=== PATIENT | male | born 1960 | race Caucasian/White ===

== ENCOUNTER 2018-10-30 04:54 | Inpatient (IN) | payer OTHER ==
[2018-10-30] MEDS ORDERED: NITROGLYCERIN (SL) 0.4 MG TAB SL (06:00)
[2018-10-30] MEDS ORDERED: ACETAMINOPHEN 325 MG TAB PO (06:00)
[2018-10-30] MEDS ORDERED: MAGNESIUM HYDROXIDE 30ML CUP PO (06:00)
[2018-10-30] MEDS ORDERED: morphine 2 MG INJ IV (06:00)
[2018-10-30] MEDS ORDERED: DOCUSATE SODIUM 100 MG CAP PO (06:00)
[2018-10-30] MEDS ORDERED: LORAZEPAM 2 MG INJ IV (06:00)
[2018-10-30] MEDS ORDERED: ONDANSETRON 4 MG INJ IV (06:00)
[2018-10-30] MEDS ORDERED: ALBUTEROL/IPRATROPIUM (NEB) 3 ML AMP HHN (06:00)
[2018-10-30] MEDS ORDERED: NACL 0.9% 3 ML SYG IV (06:00)
[2018-10-30] MEDS: HYDROCODONE/APAP (5/325) TAB PO ×2 (08:12→19:50)
[2018-10-30] MEDS: SOD CHLORIDE 0.45% 1,000 ML IV (08:12)
[2018-10-30] MEDS: hydrALAzine 20 MG INJ IV (08:13)
[2018-10-30 08:16] LABS: INR 0.91; PROTIME 12.4 Sec (11.9-14.9)
[2018-10-30 08:17] LABS: PARTIAL THROMBOPLASTIN TIME 31.2 Sec (23.0-35.0)
[2018-10-30 08:18] LABS: ANION GAP 8 (5-13); BLOOD UREA NITROGEN 45 mg/dl (7-20); CALCIUM 8.9 mg/dl (8.4-10.2); CARBON DIOXIDE 20 mmol/L (21-31); CHLORIDE 113 mmol/L (97-110); CREATININE 2.06 mg/dl (0.61-1.24); Estimated GFR 34 mL/min (>60); GLUCOSE 91 mg/dl (70-220); POTASSIUM 5.3 mmol/L (3.5-5.1); SODIUM 141 mmol/L (135-144)
[2018-10-30 08:31] LABS: FREE T4 (FREE THYROXINE) 0.84 ng/dl (0.64-1.79)
[2018-10-30] MEDS: HEPARIN 5,000 UNIT/1 ML VIAL SC ×2 (08:32→21:35)
[2018-10-30] MEDS: ISOSORBIDE MONONITRATE(SR)60 MG TAB PO ×2 (10:30→11:39)
[2018-10-30] MEDS ORDERED: NIFEdipine 10 MG CAP PO (11:30)
[2018-10-30] MEDS: AMLODIPINE 10 MG TAB PO (11:39)
[2018-10-30 12:31] LABS: PHOSPHORUS 5.5 mg/dl (2.5-4.9)
[2018-10-30 12:39] LABS: ADD UMIC YES; UR ASCORBIC ACID NEGATIVE (NEGATIVE); UR BACTERIA FEW /HPF (NONE SEEN); UR BILIRUBIN (Dip) NEGATIVE (NEGATIVE); UR BLOOD (Dip) 2+ mg/dL (NEGATIVE); UR CLARITY CLEAR (CLEAR); UR COLOR STRAW (YELLOW); UR GLUCOSE (Dip) NEGATIVE (NEGATIVE); UR KETONES (Dip) NEGATIVE (NEGATIVE); UR LEUKOCYTE ESTERASE (Dip) NEGATIVE Leu/ul (NEGATIVE); UR NITRITE (Dip) NEGATIVE (NEGATIVE); UR RBC 16 /HPF (0-5); UR SPECIFIC GRAVITY (Dip) 1.011 (1.003-1.030); UR TOTAL PROTEIN (Dip) 2+ mg/dl (NEGATIVE); UR UROBILINOGEN (Dip) NEGATIVE (NEGATIVE); UR WBC 1 /HPF (0-5)
[2018-10-30 12:43] LABS: CREATININE,URINE RANDOM 43.72 mg/dl (20-370)
[2018-10-30 12:51] LABS: PROTEIN/CREAT RATIO 6.65 RATIO
[2018-10-30] MEDS: CLOTRIMAZOLE 1% 30 GM CR TOP (14:10)
[2018-10-30 15:33] LABS: PARATHYROID HORMONE INTACT 42.6 pg/ml (7.5-53.5)
[2018-10-30] MEDS: NA BICARBONATE 650 MG TAB PO (21:20)
[2018-10-31] MEDS: LEVOTHYROXINE 50 MCG TAB PO (05:56)
[2018-10-31 06:21] LABS: ADD MAN DIFF? NO
[2018-10-31 06:25] LABS: BASOPHIL # 0.1 10^3/ul (0.0-0.1); BASOPHILS % 1.1 % (0.0-2.0); EOSINOPHILS # 0.3 10^3/ul (0.0-0.5); EOSINOPHILS % 6.7 % (0.0-7.0); HEMATOCRIT 32.9 % (42.0-52.0); HEMOGLOBIN 11.1 g/dl (14.0-18.0); LYMPHOCYTES # 1.3 10^3/ul (0.8-2.9); LYMPHOCYTES % 28.6 % (15.0-51.0); MEAN CORPUSCULAR HEMOGLOBIN 30.8 pg (29.0-33.0); MEAN CORPUSCULAR HGB CONC 33.7 g/dl (32.0-37.0); MEAN CORPUSCULAR VOLUME 91.4 fl (82.0-101.0); MEAN PLATELET VOLUME 8.7 fl (7.4-10.4); MONOCYTE # 0.5 10^3/ul (0.3-0.9); MONOCYTES % 10.6 % (0.0-11.0); NEUTROPHIL # 2.4 10^3/ul (1.6-7.5); NEUTROPHILS % 52.6 % (39.0-77.0); PLATELET COUNT 156 10^3/UL (140-415); RED CELL DISTRIBUTION WIDTH 13.7 % (11.5-14.5)
[2018-10-31 06:25] LABS: WHITE BLOOD COUNT 4.5 10^3/ul (4.8-10.8)
[2018-10-31 06:47] LABS: SODIUM 141 mmol/L (135-144)
[2018-10-31 06:49] LABS: ALANINE AMINOTRANSFERASE 22 IU/L (13-69); ALBUMIN 3.4 g/dl (3.3-4.9); ALBUMIN/GLOBULIN RATIO 1.06; ALKALINE PHOSPHATASE 90 IU/L (42-121); ANION GAP 9 (5-13); ASPARTATE AMINO TRANSFERASE 19 IU/L (15-46); BILIRUBIN,INDIRECT 0.4 mg/dl (0-1.1); BILIRUBIN,TOTAL 0.4 mg/dl (0.2-1.3); BLOOD UREA NITROGEN 53 mg/dl (7-20); CALCIUM 8.6 mg/dl (8.4-10.2); CARBON DIOXIDE 19 mmol/L (21-31); CHLORIDE 113 mmol/L (97-110); CREATININE 2.25 mg/dl (0.61-1.24); Estimated GFR 30 mL/min (>60); GLUCOSE 92 mg/dl (70-220); TOTAL PROTEIN 6.6 g/dl (6.1-8.1)
[2018-10-31 06:52] LABS: IRON 101 ug/dl (35-150)
[2018-10-31 06:58] LABS: CHOL/HDL RATIO 4.6 RATIO; CHOLESTEROL 227 mg/dl (100-200); HDL CHOLESTEROL 49 mg/dl (28-71); LDL CHOLESTEROL,CALCULATED 155 mg/dl; MAGNESIUM 2.3 mg/dl (1.7-2.5); TRIGLYCERIDES 115 mg/dl (0-149)
[2018-10-31 06:58] LABS: PHOSPHORUS 5.7 mg/dl (2.5-4.9)
[2018-10-31 07:01] LABS: % IRON SATURATION 37 % SAT (22-52); TOTAL IRON BINDING CAPACITY 274 ug/dl (241-421)
[2018-10-31 07:29] LABS: FERRITIN 56.7 ng/ml (11.1-264.0)
[2018-10-31] MEDS: FUROSEMIDE 40 MG TAB PO (08:27)
[2018-10-31] MEDS: NA BICARBONATE 650 MG TAB PO (08:27)
[2018-10-31] MEDS: CLOTRIMAZOLE 1% 30 GM CR TOP (08:28)
[2018-10-31] MEDS: AMLODIPINE 10 MG TAB PO (08:28)
[2018-10-31] MEDS: ISOSORBIDE MONONITRATE(SR)60 MG TAB PO (08:28)
[2018-10-31] MEDS: HEPARIN 5,000 UNIT/1 ML VIAL SC (08:29)
[2018-10-31] MEDS: HYDROCODONE/APAP (5/325) TAB PO (08:47)
[2018-10-31 13:19] LABS: COMPLEMENT C3 103 mg/dl (88-165); COMPLEMENT C4 16 mg/dl (14-44)
[2018-11-01 05:31] LABS: PROTEIN, TOTAL 6.8 g/dL (6.1-8.1)
[2018-11-01 14:12] LABS: ANCA SCREEN NEGATIVE (NEGATIVE)
[2018-11-01 18:51] LABS: ANA SCREEN POSITIVE (NEGATIVE)
[2018-11-01 19:36] LABS: MYELOPEROXIDASE ANTIBODY <1.0 AI; PROTEINASE-3 ANTIBODY <1.0 AI
[2018-11-01 21:13] LABS: ANA PATTERN SPECKLED; ANA TITER 1:40 titer
[2018-11-01 23:32] LABS: ALBUMIN 3.7 g/dL (3.8-4.8); ALPHA-1-GLOBULINS 0.3 g/dL (0.2-0.3); ALPHA-2-GLOBULINS 0.8 g/dL (0.5-0.9); BETA 2 GLOBULINS 0.3 g/dL (0.2-0.5); BETA GLOBULINS 0.5 g/dL (0.4-0.6); GAMMA GLOBULINS 1.2 g/dL (0.8-1.7)
[2018-11-02 07:12] LABS: ALDOSTERONE 6 ng/dL
== END 2018-10-31 14:46 | disposition home or self-care (01) | DRG 305 ==
LOC: TEL 04:54
PROVIDERS: Hospitalist
DX: I16.1 Hypertensive emergency (principal); E87.2 Acidosis; E87.5 Hyperkalemia; I12.9 Hypertensive chronic kidney disease with stage 1 through stage 4 chronic kidney disease, or unspecified chronic kidney disease; N18.3 Chronic kidney disease, stage 3 (moderate); I27.20 Pulmonary hypertension, unspecified; E03.9 Hypothyroidism, unspecified; D64.9 Anemia, unspecified; I25.2 Old myocardial infarction; M54.2 Cervicalgia; E78.5 Hyperlipidemia, unspecified
CPT/HCPCS: 80048; 80053; 80061; 81001; 81003; 82088; 82570; 82728; 83036; 83540; 83735; 83970; 84100; 84155; 84165; 84244; 84439; 84443; 85025; 85610; 85730; 86021; 86038; 86160; 87081; 92610; 93306; 93976; 97161

== ENCOUNTER 2019-01-20 09:34 | Emergency (ER) | payer OTHER ==
[2019-01-20] MEDS: ONDANSETRON 4 MG INJ IV (10:30)
[2019-01-20] MEDS: morphine 4 MG/ML VIAL IV (10:30)
[2019-01-20] MEDS: SOD CHLORIDE 0.9% 1,000 ML IV (10:31)
[2019-01-20 10:36] LABS: ADD MAN DIFF? NO
[2019-01-20 10:40] LABS: WHITE BLOOD COUNT 6.5 10^3/ul (4.8-10.8)
[2019-01-20 10:40] LABS: BASOPHIL # 0.1 10^3/ul (0.0-0.1); BASOPHILS % 1.2 % (0.0-2.0); EOSINOPHILS # 0.3 10^3/ul (0.0-0.5); EOSINOPHILS % 4.3 % (0.0-7.0); HEMATOCRIT 34.8 % (42.0-52.0); LYMPHOCYTES # 1.3 10^3/ul (0.8-2.9); LYMPHOCYTES % 20.3 % (15.0-51.0); MEAN CORPUSCULAR HEMOGLOBIN 31.1 pg (29.0-33.0); MEAN CORPUSCULAR HGB CONC 34.5 g/dl (32.0-37.0); MEAN CORPUSCULAR VOLUME 90.2 fl (82.0-101.0); MEAN PLATELET VOLUME 9.4 fl (7.4-10.4); MONOCYTE # 0.5 10^3/ul (0.3-0.9); MONOCYTES % 7.9 % (0.0-11.0); NEUTROPHIL # 4.3 10^3/ul (1.6-7.5); PLATELET COUNT 179 10^3/UL (140-415); RED BLOOD COUNT 3.86 10^6/ul (4.70-6.10); RED CELL DISTRIBUTION WIDTH 12.3 % (11.5-14.5)
[2019-01-20 10:56] LABS: ALANINE AMINOTRANSFERASE 14 IU/L (13-69); ALBUMIN 3.9 g/dl (3.3-4.9); ALBUMIN/GLOBULIN RATIO 1.18; ALKALINE PHOSPHATASE 77 IU/L (42-121); ANION GAP 8 (5-13); ASPARTATE AMINO TRANSFERASE 21 IU/L (15-46); BILIRUBIN,INDIRECT 0.4 mg/dl (0-1.1); BILIRUBIN,TOTAL 0.4 mg/dl (0.2-1.3); BLOOD UREA NITROGEN 46 mg/dl (7-20); CALCIUM 9.5 mg/dl (8.4-10.2); CARBON DIOXIDE 22 mmol/L (21-31); CHLORIDE 109 mmol/L (97-110); CREATININE 2.32 mg/dl (0.61-1.24); Estimated GFR 29 mL/min (>60); GLUCOSE 101 mg/dl (70-220); LIPASE 110 U/L (23-300); POTASSIUM 4.6 mmol/L (3.5-5.1); SODIUM 139 mmol/L (135-144); TOTAL PROTEIN 7.2 g/dl (6.1-8.1)
[2019-01-20 11:07] LABS: TROPONIN-I < 0.012 ng/ml (0.000-0.120)
[2019-01-20 11:54] LABS: ADD UMIC YES; UR ASCORBIC ACID NEGATIVE (NEGATIVE); UR BILIRUBIN (Dip) NEGATIVE (NEGATIVE); UR BLOOD (Dip) 1+ mg/dL (NEGATIVE); UR CLARITY CLEAR (CLEAR); UR COLOR YELLOW (YELLOW); UR GLUCOSE (Dip) NEGATIVE (NEGATIVE); UR KETONES (Dip) NEGATIVE (NEGATIVE); UR LEUKOCYTE ESTERASE (Dip) NEGATIVE Leu/ul (NEGATIVE); UR NITRITE (Dip) NEGATIVE (NEGATIVE); UR RBC 12 /HPF (0-5); UR TOTAL PROTEIN (Dip) 3+ mg/dl (NEGATIVE); UR UROBILINOGEN (Dip) NEGATIVE (NEGATIVE); UR WBC 2 /HPF (0-5)
== END 2019-01-20 12:46 | disposition home or self-care (01) ==
LOC: FTE 09:34
DX: I12.9 Hypertensive chronic kidney disease with stage 1 through stage 4 chronic kidney disease, or unspecified chronic kidney disease (principal); R80.9 Proteinuria, unspecified; I11.0 Hypertensive heart disease with heart failure; I50.9 Heart failure, unspecified; N18.9 Chronic kidney disease, unspecified; I25.2 Old myocardial infarction; Z18.89 Other specified retained foreign body fragments; Z86.73 Personal history of transient ischemic attack (TIA), and cerebral infarction without residual deficits
CPT/HCPCS: 36415; 71045; 74176; 80053; 81001; 83690; 84484; 85025; 96361; 96374; 96375; 99285-25

== ENCOUNTER 2019-01-23 19:05 | Inpatient (IN) | payer OTHER ==
[2019-01-23] MEDS ORDERED: ONDANSETRON 4 MG INJ IV (19:30)
[2019-01-23] MEDS ORDERED: ACETAMINOPHEN 325 MG TAB PO (19:30)
[2019-01-23] MEDS: LABETALOL HCL 20MG INJ IV (19:42)
[2019-01-23 19:56] LABS: ADD MAN DIFF? NO
[2019-01-23 20:20] LABS: BASOPHIL # 0.1 10^3/ul (0.0-0.1); EOSINOPHILS # 0.3 10^3/ul (0.0-0.5); EOSINOPHILS % 5.4 % (0.0-7.0); HEMATOCRIT 37.1 % (42.0-52.0); HEMOGLOBIN 12.6 g/dl (14.0-18.0); LYMPHOCYTES # 1.2 10^3/ul (0.8-2.9); MEAN CORPUSCULAR HEMOGLOBIN 30.9 pg (29.0-33.0); MEAN CORPUSCULAR VOLUME 90.9 fl (82.0-101.0); MEAN PLATELET VOLUME 9.4 fl (7.4-10.4); MONOCYTE # 0.6 10^3/ul (0.3-0.9); MONOCYTES % 9.4 % (0.0-11.0); NEUTROPHIL # 3.8 10^3/ul (1.6-7.5); NEUTROPHILS % 63.2 % (39.0-77.0); PLATELET COUNT 190 10^3/UL (140-415); RED BLOOD COUNT 4.08 10^6/ul (4.70-6.10); RED CELL DISTRIBUTION WIDTH 12.4 % (11.5-14.5)
[2019-01-23 20:42] LABS: ALANINE AMINOTRANSFERASE 21 IU/L (13-69); ALBUMIN 3.9 g/dl (3.3-4.9); ALBUMIN/GLOBULIN RATIO 1.14; ALKALINE PHOSPHATASE 88 IU/L (42-121); ANION GAP 8 (5-13); ASPARTATE AMINO TRANSFERASE 24 IU/L (15-46); BILIRUBIN,INDIRECT 0.4 mg/dl (0-1.1); BILIRUBIN,TOTAL 0.4 mg/dl (0.2-1.3); BLOOD UREA NITROGEN 42 mg/dl (7-20); CALCIUM 9.1 mg/dl (8.4-10.2); CARBON DIOXIDE 21 mmol/L (21-31); CHLORIDE 111 mmol/L (97-110); CREATININE 2.19 mg/dl (0.61-1.24); Estimated GFR 31 mL/min (>60); GLUCOSE 99 mg/dl (70-220); POTASSIUM 4.3 mmol/L (3.5-5.1); SODIUM 140 mmol/L (135-144); TOTAL PROTEIN 7.3 g/dl (6.1-8.1)
[2019-01-23 20:52] LABS: TROPONIN-I < 0.012 ng/ml (0.000-0.120)
[2019-01-23] MEDS: HYDROCODONE/APAP (5/325) TAB PO (22:13)
[2019-01-24] MEDS ORDERED: ALBUTEROL/IPRATROPIUM (NEB) 3 ML AMP HHN (02:30)
[2019-01-24] MEDS ORDERED: NACL 0.9% 3 ML SYG IV (02:30)
[2019-01-24] MEDS ORDERED: ONDANSETRON 4 MG INJ IV (02:30)
[2019-01-24] MEDS ORDERED: ACETAMINOPHEN 325 MG TAB PO (02:30)
[2019-01-24] MEDS ORDERED: NITROGLYCERIN (SL) 0.4 MG TAB SL (02:30)
[2019-01-24] MEDS: LOSARTAN 50 MG TAB PO ×2 (02:53→09:31)
[2019-01-24] MEDS: HYDROCODONE/APAP (5/325) TAB PO ×3 (03:08→18:55)
[2019-01-24 05:59] LABS: ADD MAN DIFF? NO
[2019-01-24 06:06] LABS: BASOPHIL # 0.1 10^3/ul (0.0-0.1); BASOPHILS % 1.2 % (0.0-2.0); EOSINOPHILS # 0.3 10^3/ul (0.0-0.5); EOSINOPHILS % 5.5 % (0.0-7.0); HEMATOCRIT 34.6 % (42.0-52.0); HEMOGLOBIN 11.6 g/dl (14.0-18.0); LYMPHOCYTES # 1.2 10^3/ul (0.8-2.9); LYMPHOCYTES % 19.8 % (15.0-51.0); MEAN CORPUSCULAR HEMOGLOBIN 30.4 pg (29.0-33.0); MEAN CORPUSCULAR HGB CONC 33.5 g/dl (32.0-37.0); MEAN CORPUSCULAR VOLUME 90.6 fl (82.0-101.0); MONOCYTE # 0.6 10^3/ul (0.3-0.9); MONOCYTES % 10.4 % (0.0-11.0); NEUTROPHIL # 3.7 10^3/ul (1.6-7.5); NEUTROPHILS % 62.4 % (39.0-77.0); PLATELET COUNT 170 10^3/UL (140-415); RED BLOOD COUNT 3.82 10^6/ul (4.70-6.10); RED CELL DISTRIBUTION WIDTH 12.6 % (11.5-14.5)
[2019-01-24 06:24] LABS: CREATINE KINASE 78 IU/L (23-200)
[2019-01-24 06:35] LABS: LIPASE 79 U/L (23-300)
[2019-01-24 06:36] LABS: CK INDEX 1.3; CK-MB 1.02 ng/ml (0.0-2.4); TROPONIN-I 0.021 ng/ml (0.000-0.120)
[2019-01-24 06:38] LABS: ALANINE AMINOTRANSFERASE 18 IU/L (13-69); ALBUMIN/GLOBULIN RATIO 0.96; ALKALINE PHOSPHATASE 73 IU/L (42-121); ANION GAP 3 (5-13); ASPARTATE AMINO TRANSFERASE 21 IU/L (15-46); BILIRUBIN,INDIRECT 0.5 mg/dl (0-1.1); BILIRUBIN,TOTAL 0.5 mg/dl (0.2-1.3); BLOOD UREA NITROGEN 38 mg/dl (7-20); CALCIUM 8.6 mg/dl (8.4-10.2); CARBON DIOXIDE 24 mmol/L (21-31); CHLORIDE 112 mmol/L (97-110); CREATININE 2.02 mg/dl (0.61-1.24); Estimated GFR 34 mL/min (>60); GLUCOSE 93 mg/dl (70-220); POTASSIUM 4.3 mmol/L (3.5-5.1); SODIUM 139 mmol/L (135-144); TOTAL PROTEIN 6.1 g/dl (6.1-8.1)
[2019-01-24] MEDS: PANTOPRAZOLE (EC) 40 MG TAB PO (06:39)
[2019-01-24] MEDS: LEVOTHYROXINE 50 MCG TAB PO (06:39)
[2019-01-24] MEDS: ASPIRIN (EC) 81 MG TAB PO (09:25)
[2019-01-24] MEDS: BETAMETHASONE/CLOTRIMAZOLE 15 GM CR TOP ×2 (09:25→20:39)
[2019-01-24] MEDS: ISOSORBIDE MONONITRATE(SR)60 MG TAB PO (09:31)
[2019-01-24] MEDS: AMLODIPINE 10 MG TAB PO (09:32)
[2019-01-24] MEDS: FUROSEMIDE 40 MG TAB PO (09:32)
[2019-01-24] MEDS: HEPARIN 5,000 UNIT/1 ML VIAL SC ×2 (10:18→20:46)
[2019-01-24 11:38] LABS: CREATINE KINASE 80 IU/L (23-200)
[2019-01-24 11:47] LABS: CK INDEX 1.1; CK-MB 0.85 ng/ml (0.0-2.4); TROPONIN-I < 0.012 ng/ml (0.000-0.120)
[2019-01-24 19:42] LABS: ADD UMIC YES; UR ASCORBIC ACID NEGATIVE (NEGATIVE); UR BILIRUBIN (Dip) NEGATIVE (NEGATIVE); UR BLOOD (Dip) 2+ mg/dL (NEGATIVE); UR CLARITY CLEAR (CLEAR); UR COLOR YELLOW (YELLOW); UR GLUCOSE (Dip) NEGATIVE (NEGATIVE); UR KETONES (Dip) NEGATIVE (NEGATIVE); UR LEUKOCYTE ESTERASE (Dip) NEGATIVE Leu/ul (NEGATIVE); UR NITRITE (Dip) NEGATIVE (NEGATIVE); UR RBC 7 /HPF (0-5); UR TOTAL PROTEIN (Dip) 2+ mg/dl (NEGATIVE); UR UROBILINOGEN (Dip) NEGATIVE (NEGATIVE); UR WBC 2 /HPF (0-5)
[2019-01-24] MEDS: ATORVASTATIN 40 MG TAB PO (20:39)
[2019-01-25 02:44] LABS: ADD UMIC YES; UR ASCORBIC ACID NEGATIVE (NEGATIVE); UR BACTERIA FEW /HPF (NONE SEEN); UR BILIRUBIN (Dip) NEGATIVE (NEGATIVE); UR BLOOD (Dip) 1+ mg/dL (NEGATIVE); UR CLARITY CLEAR (CLEAR); UR COLOR YELLOW (YELLOW); UR GLUCOSE (Dip) NEGATIVE (NEGATIVE); UR KETONES (Dip) NEGATIVE (NEGATIVE); UR LEUKOCYTE ESTERASE (Dip) NEGATIVE Leu/ul (NEGATIVE); UR NITRITE (Dip) NEGATIVE (NEGATIVE); UR RBC 7 /HPF (0-5); UR SPECIFIC GRAVITY (Dip) 1.012 (1.003-1.030); UR TOTAL PROTEIN (Dip) 2+ mg/dl (NEGATIVE); UR UROBILINOGEN (Dip) NEGATIVE (NEGATIVE); UR WBC 1 /HPF (0-5)
[2019-01-25 02:51] LABS: CREATININE,URINE RANDOM 75.65 mg/dl (20-370)
[2019-01-25 02:51] LABS: SODIUM,URINE RANDOM 75 mmol/L (30-90)
[2019-01-25 06:14] LABS: ADD MAN DIFF? NO
[2019-01-25 06:22] LABS: WHITE BLOOD COUNT 4.8 10^3/ul (4.8-10.8)
[2019-01-25 06:22] LABS: BASOPHIL # 0.1 10^3/ul (0.0-0.1); EOSINOPHILS # 0.4 10^3/ul (0.0-0.5); EOSINOPHILS % 8.1 % (0.0-7.0); HEMATOCRIT 32.7 % (42.0-52.0); HEMOGLOBIN 11.2 g/dl (14.0-18.0); LYMPHOCYTES # 1.2 10^3/ul (0.8-2.9); LYMPHOCYTES % 24.6 % (15.0-51.0); MEAN CORPUSCULAR HEMOGLOBIN 31.5 pg (29.0-33.0); MEAN CORPUSCULAR HGB CONC 34.3 g/dl (32.0-37.0); MEAN CORPUSCULAR VOLUME 91.9 fl (82.0-101.0); MEAN PLATELET VOLUME 9.3 fl (7.4-10.4); MONOCYTE # 0.5 10^3/ul (0.3-0.9); MONOCYTES % 10.5 % (0.0-11.0); NEUTROPHIL # 2.7 10^3/ul (1.6-7.5); NEUTROPHILS % 55.6 % (39.0-77.0); PLATELET COUNT 184 10^3/UL (140-415); RED BLOOD COUNT 3.56 10^6/ul (4.70-6.10); RED CELL DISTRIBUTION WIDTH 12.3 % (11.5-14.5)
[2019-01-25 06:40] LABS: ANION GAP 5 (5-13); BLOOD UREA NITROGEN 42 mg/dl (7-20); CALCIUM 8.5 mg/dl (8.4-10.2); CARBON DIOXIDE 24 mmol/L (21-31); CHLORIDE 110 mmol/L (97-110); CREATININE 2.24 mg/dl (0.61-1.24); Estimated GFR 30 mL/min (>60); GLUCOSE 104 mg/dl (70-220); MAGNESIUM 2.2 mg/dl (1.7-2.5); PHOSPHORUS 4.3 mg/dl (2.5-4.9); POTASSIUM 4.1 mmol/L (3.5-5.1); SODIUM 139 mmol/L (135-144)
[2019-01-25] MEDS: PANTOPRAZOLE (EC) 40 MG TAB PO (06:49)
[2019-01-25] MEDS: AMLODIPINE 10 MG TAB PO (09:02)
[2019-01-25] MEDS: ASPIRIN (EC) 81 MG TAB PO (09:02)
[2019-01-25] MEDS: FUROSEMIDE 40 MG TAB PO (09:02)
[2019-01-25] MEDS: LEVOTHYROXINE 50 MCG TAB PO (09:03)
[2019-01-25] MEDS: ISOSORBIDE MONONITRATE(SR)60 MG TAB PO (09:03)
[2019-01-25] MEDS: LOSARTAN 50 MG TAB PO (09:04)
[2019-01-25] MEDS: BETAMETHASONE/CLOTRIMAZOLE 15 GM CR TOP ×2 (09:04→20:16)
[2019-01-25] MEDS: HEPARIN 5,000 UNIT/1 ML VIAL SC ×2 (09:10→20:12)
[2019-01-25] MEDS: HYDROCODONE/APAP (5/325) TAB PO ×2 (09:15→20:15)
[2019-01-25 16:06] LABS: CREATININE, RANDOM URINE 68 mg/dL (20-320); MICROALBUMIN/CREATININE RATIO 912 (<30)
[2019-01-25] MEDS: NIFEdipine (XL) 60 MG TAB PO (16:58)
[2019-01-25] MEDS: ATORVASTATIN 40 MG TAB PO (20:12)
[2019-01-26] MEDS: traMADol 50 MG TAB PO (00:54)
[2019-01-26] MEDS: HYDROCODONE/APAP (5/325) TAB PO ×3 (01:30→20:51)
[2019-01-26] MEDS: LEVOTHYROXINE 50 MCG TAB PO ×2 (06:30→09:01)
[2019-01-26] MEDS: PANTOPRAZOLE (EC) 40 MG TAB PO ×2 (06:30→09:01)
[2019-01-26 06:57] LABS: ANION GAP 7 (5-13); BLOOD UREA NITROGEN 49 mg/dl (7-20); CALCIUM 8.8 mg/dl (8.4-10.2); CARBON DIOXIDE 23 mmol/L (21-31); CHLORIDE 107 mmol/L (97-110); CREATININE 2.58 mg/dl (0.61-1.24); Estimated GFR 26 mL/min (>60); GLUCOSE 96 mg/dl (70-220); POTASSIUM 4.6 mmol/L (3.5-5.1); SODIUM 137 mmol/L (135-144)
[2019-01-26] MEDS: ASPIRIN (EC) 81 MG TAB PO (09:00)
[2019-01-26] MEDS: NIFEdipine (XL) 60 MG TAB PO (09:01)
[2019-01-26] MEDS: ISOSORBIDE MONONITRATE(SR)60 MG TAB PO (09:01)
[2019-01-26] MEDS: HEPARIN 5,000 UNIT/1 ML VIAL SC ×2 (09:06→20:56)
[2019-01-26] MEDS: BETAMETHASONE/CLOTRIMAZOLE 15 GM CR TOP ×2 (09:06→20:47)
[2019-01-26] MEDS ORDERED: CEPHALEXIN 500 MG CAP PO (13:30)
[2019-01-26] MEDS: CEPHALEXIN 500 MG CAP PO (20:46)
[2019-01-26] MEDS: ATORVASTATIN 40 MG TAB PO (20:46)
[2019-01-27 07:17] LABS: ANION GAP 6 (5-13); BLOOD UREA NITROGEN 61 mg/dl (7-20); CALCIUM 8.5 mg/dl (8.4-10.2); CARBON DIOXIDE 22 mmol/L (21-31); CHLORIDE 108 mmol/L (97-110); CREATININE 2.93 mg/dl (0.61-1.24); Estimated GFR 22 mL/min (>60); GLUCOSE 88 mg/dl (70-220); MAGNESIUM 2.3 mg/dl (1.7-2.5); PHOSPHORUS 5.3 mg/dl (2.5-4.9); POTASSIUM 4.4 mmol/L (3.5-5.1); SODIUM 136 mmol/L (135-144)
[2019-01-27] MEDS: BETAMETHASONE/CLOTRIMAZOLE 15 GM CR TOP ×2 (09:00→21:43)
[2019-01-27] MEDS: ISOSORBIDE MONONITRATE(SR)60 MG TAB PO (09:01)
[2019-01-27] MEDS: CEPHALEXIN 500 MG CAP PO ×2 (09:01→21:44)
[2019-01-27] MEDS: ASPIRIN (EC) 81 MG TAB PO (09:01)
[2019-01-27] MEDS: NIFEdipine (XL) 60 MG TAB PO (09:01)
[2019-01-27] MEDS: HEPARIN 5,000 UNIT/1 ML VIAL SC ×2 (09:08→21:54)
[2019-01-27] MEDS ORDERED: POLYETHYLENE GLYCOL 17 GM PACKET PO (15:00)
[2019-01-27] MEDS: HYDROCODONE/APAP (5/325) TAB PO (18:03)
[2019-01-27] MEDS ORDERED: HARD FAT/PHENYLEPHRINE SUPP PR (21:00)
[2019-01-27] MEDS: ATORVASTATIN 40 MG TAB PO (22:25)
[2019-01-28 06:11] LABS: ANION GAP 6 (5-13); BLOOD UREA NITROGEN 65 mg/dl (7-20); CALCIUM 8.7 mg/dl (8.4-10.2); CARBON DIOXIDE 23 mmol/L (21-31); CHLORIDE 107 mmol/L (97-110); CREATININE 2.67 mg/dl (0.61-1.24); Estimated GFR 25 mL/min (>60); GLUCOSE 104 mg/dl (70-220); MAGNESIUM 2.4 mg/dl (1.7-2.5); POTASSIUM 4.3 mmol/L (3.5-5.1); SODIUM 136 mmol/L (135-144)
[2019-01-28] MEDS: PANTOPRAZOLE (EC) 40 MG TAB PO (06:12)
[2019-01-28] MEDS: LEVOTHYROXINE 50 MCG TAB PO (06:12)
[2019-01-28] MEDS: CALCIUM POLYCARBOPHIL 625 MG TAB PO (08:29)
[2019-01-28] MEDS: ASPIRIN (EC) 81 MG TAB PO (08:30)
[2019-01-28] MEDS: ISOSORBIDE MONONITRATE(SR)60 MG TAB PO (08:31)
[2019-01-28] MEDS: CEPHALEXIN 500 MG CAP PO ×2 (08:31→20:20)
[2019-01-28] MEDS: NIFEdipine (XL) 60 MG TAB PO (08:32)
[2019-01-28] MEDS: BETAMETHASONE/CLOTRIMAZOLE 15 GM CR TOP ×2 (08:37→20:22)
[2019-01-28] MEDS: HEPARIN 5,000 UNIT/1 ML VIAL SC ×2 (08:46→21:00)
[2019-01-28] MEDS: HYDROCODONE/APAP (5/325) TAB PO ×2 (09:47→19:43)
[2019-01-28] MEDS: ATORVASTATIN 40 MG TAB PO (20:24)
[2019-01-29] MEDS: HYDROCODONE/APAP (5/325) TAB PO ×3 (04:36→21:16)
[2019-01-29] MEDS: LEVOTHYROXINE 50 MCG TAB PO (06:08)
[2019-01-29] MEDS: PANTOPRAZOLE (EC) 40 MG TAB PO (06:08)
[2019-01-29 06:35] LABS: ANION GAP 6 (5-13); BLOOD UREA NITROGEN 57 mg/dl (7-20); CALCIUM 8.8 mg/dl (8.4-10.2); CARBON DIOXIDE 21 mmol/L (21-31); CHLORIDE 109 mmol/L (97-110); CREATININE 2.54 mg/dl (0.61-1.24); Estimated GFR 26 mL/min (>60); GLUCOSE 109 mg/dl (70-220); MAGNESIUM 2.3 mg/dl (1.7-2.5); PHOSPHORUS 4.4 mg/dl (2.5-4.9); POTASSIUM 4.8 mmol/L (3.5-5.1); SODIUM 136 mmol/L (135-144)
[2019-01-29] MEDS: POLYETHYLENE GLYCOL 17 GM PACKET PO (08:13)
[2019-01-29] MEDS: CALCIUM POLYCARBOPHIL 625 MG TAB PO (08:14)
[2019-01-29] MEDS: CEPHALEXIN 500 MG CAP PO ×2 (08:14→21:14)
[2019-01-29] MEDS: ASPIRIN (EC) 81 MG TAB PO (08:14)
[2019-01-29] MEDS: NIFEdipine (XL) 60 MG TAB PO (08:16)
[2019-01-29] MEDS: ISOSORBIDE MONONITRATE(SR)60 MG TAB PO (08:17)
[2019-01-29] MEDS: HEPARIN 5,000 UNIT/1 ML VIAL SC ×2 (08:17→21:47)
[2019-01-29] MEDS: BETAMETHASONE/CLOTRIMAZOLE 15 GM CR TOP ×2 (08:18→21:15)
[2019-01-29] MEDS: ATORVASTATIN 40 MG TAB PO (21:14)
[2019-01-30] MEDS: HYDROCODONE/APAP (5/325) TAB PO ×2 (01:08→07:00)
[2019-01-30] MEDS: hydrALAzine 20 MG INJ IV (01:40)
[2019-01-30] MEDS ORDERED: hydrALAzine 20 MG INJ IV (03:00)
[2019-01-30 05:06] LABS: ADD MAN DIFF? NO
[2019-01-30 05:07] LABS: BASOPHIL # 0.1 10^3/ul (0.0-0.1); BASOPHILS % 1.5 % (0.0-2.0); EOSINOPHILS # 0.4 10^3/ul (0.0-0.5); EOSINOPHILS % 8.5 % (0.0-7.0); HEMATOCRIT 32.7 % (42.0-52.0); HEMOGLOBIN 11.1 g/dl (14.0-18.0); LYMPHOCYTES # 1.4 10^3/ul (0.8-2.9); LYMPHOCYTES % 26.6 % (15.0-51.0); MEAN CORPUSCULAR HEMOGLOBIN 31.4 pg (29.0-33.0); MEAN CORPUSCULAR HGB CONC 33.9 g/dl (32.0-37.0); MEAN CORPUSCULAR VOLUME 92.4 fl (82.0-101.0); MEAN PLATELET VOLUME 9.1 fl (7.4-10.4); MONOCYTE # 0.5 10^3/ul (0.3-0.9); MONOCYTES % 9.1 % (0.0-11.0); NEUTROPHIL # 2.7 10^3/ul (1.6-7.5); NEUTROPHILS % 52.9 % (39.0-77.0); PLATELET COUNT 182 10^3/UL (140-415); RED BLOOD COUNT 3.54 10^6/ul (4.70-6.10); RED CELL DISTRIBUTION WIDTH 12.4 % (11.5-14.5)
[2019-01-30 05:07] LABS: WHITE BLOOD COUNT 5.2 10^3/ul (4.8-10.8)
[2019-01-30 05:44] LABS: ANION GAP 5 (5-13); BLOOD UREA NITROGEN 57 mg/dl (7-20); CALCIUM 8.6 mg/dl (8.4-10.2); CARBON DIOXIDE 24 mmol/L (21-31); CHLORIDE 108 mmol/L (97-110); CREATININE 2.61 mg/dl (0.61-1.24); Estimated GFR 26 mL/min (>60); GLUCOSE 90 mg/dl (70-220); MAGNESIUM 2.5 mg/dl (1.7-2.5); PHOSPHORUS 4.3 mg/dl (2.5-4.9); POTASSIUM 5.1 mmol/L (3.5-5.1); SODIUM 137 mmol/L (135-144)
[2019-01-30] MEDS: LEVOTHYROXINE 50 MCG TAB PO (07:01)
[2019-01-30] MEDS: PANTOPRAZOLE (EC) 40 MG TAB PO (07:36)
[2019-01-30] MEDS: ASPIRIN (EC) 81 MG TAB PO (08:23)
[2019-01-30] MEDS: ISOSORBIDE MONONITRATE(SR)60 MG TAB PO (08:23)
[2019-01-30] MEDS: CEPHALEXIN 500 MG CAP PO (08:24)
[2019-01-30] MEDS: NIFEdipine (XL) 60 MG TAB PO (08:24)
[2019-01-30] MEDS: POLYETHYLENE GLYCOL 17 GM PACKET PO (08:25)
[2019-01-30] MEDS: CALCIUM POLYCARBOPHIL 625 MG TAB PO (08:25)
[2019-01-30] MEDS: HEPARIN 5,000 UNIT/1 ML VIAL SC (08:28)
[2019-01-30] MEDS: BETAMETHASONE/CLOTRIMAZOLE 15 GM CR TOP (08:34)
[2019-01-31] MEDS ORDERED: LEVOTHYROXINE 75 MCG TAB PO (07:00)
== END 2019-01-30 14:48 | disposition home or self-care (01) | DRG 305 ==
LOC: 6WM 19:15 → MS1 01-30 00:39 → E/R 19:05
DX: I16.0 Hypertensive urgency (principal); E87.2 Acidosis; N17.9 Acute kidney failure, unspecified; N39.0 Urinary tract infection, site not specified; I11.0 Hypertensive heart disease with heart failure; I50.9 Heart failure, unspecified; I27.20 Pulmonary hypertension, unspecified; N18.3 Chronic kidney disease, stage 3 (moderate); E03.9 Hypothyroidism, unspecified; I25.10 Atherosclerotic heart disease of native coronary artery without angina pectoris; E78.5 Hyperlipidemia, unspecified; G89.29 Other chronic pain; R10.9 Unspecified abdominal pain; D63.1 Anemia in chronic kidney disease; E83.89 Other disorders of mineral metabolism; T14.8XXS Other injury of unspecified body region, sequela; W34.00XS Accidental discharge from unspecified firearms or gun, sequela; K64.9 Unspecified hemorrhoids; B19.20 Unspecified viral hepatitis C without hepatic coma; L85.3 Xerosis cutis
CPT/HCPCS: 76700; 80048; 80053; 81001; 81003; 82043; 82550; 82553; 83690; 83735; 84100; 84155; 84300; 84443; 84484; 85025; 87086; 99285-25